=== PATIENT | female | born 2000 | race Caucasian/White ===

== ENCOUNTER 2024-10-25 20:23 | Day surgery (SDC) | payer BC, SELFPAY ==
[2024-10-25] VITALS (8 sets, daily range): BP systolic 98–116; BP diastolic 57–80; BMI 36.3
[2024-10-25 13:39] LABS: % Basophils 0.4 % (0-2); % Eosinophils 1.4 % (0-6); % Immature Granulocytes 0.3 % (0-0.5); % Lymphocytes 20.6 % (20.5-51.1); % Monocytes 4.4 % (1.7-9.3); % Neutrophils 72.9 % (42.2-75.2); Absolute Eosinophils 0.2 10^3/uL (0-0.7); Absolute Lymphocytes 2.2 10^3/uL (1.2-3.4); Absolute Monocytes 0.5 10^3/uL (0.1-0.6); Absolute Neutrophils 7.9 10^3/uL (1.4-6.5); Hematocrit 38.6 % (37.0-47.0); Hemoglobin 13.4 g/dL (12.0-16.0); Mean Corp Hgb Conc. 34.7 g/dL (33.0-37.0); Mean Corpuscular Hgb 30.4 pg (27.0-31.0); Mean Corpuscular Volume 87.5 fL (81.0-99.0); Mean Platelet Volume 9.5 fL (7.4-10.4); Nucleated Red Blood Cells % 0 %; Platelet Count 391 10^3/uL (130-400); Red Blood Cell Count 4.41 10^6/uL (4.20-5.40); Red Cell Dist. Width 12.3 % (11.5-14.5); White Blood Cell Count 10.8 10^3/uL (4.8-10.8)
[2024-10-25 13:49] LABS: HCG, Serum Qualitative Screen Negative
[2024-10-25 13:56] LABS: ALT (SGPT) 158 U/L (0-35); AST (SGOT) 206 U/L (14-36); Albumin 4.3 g/dl (3.5-5.0); Alkaline Phosphatase 79 U/L (38-126); Blood Urea Nitrogen 13 mg/dl (7-17); Calcium 9.8 mg/dl (8.4-10.2); Carbon Dioxide 24 mmol/L (22-30); Chloride 108 mmol/L (98-107); Glucose 119 mg/dl (70-99); Lipase 113 U/L (23-300); Potassium 3.7 mmol/L (3.5-5.1); Sodium 141 mmol/L (135-145); Total Bilirubin 1.8 mg/dl (0.2-1.3); Total Protein 7.4 g/dl (6.3-8.2); eGFR > 60.00
--- NOTE | 2024-10-25 16:30 | ED.GENMED ---
History of Present Illness
General
Chief Complaint: Abdominal Symptoms
Source: patient
Time Seen by Provider: 10/25/24 15:18
History of Present Illness
History of Present Illness:
23-year-old female with past medical history of asthma and PCOS presenting to the emergency department for evaluation of right upper quadrant abdominal pain that has been waxing and waning for the last few weeks, went to primary care provider 3
weeks ago but nothing was reportedly done at that time. This morning patient ate a peanut butter sandwich and approximately 30 minutes after eating developed severe right upper quadrant pain that radiated towards her back accompanied with nausea
and vomiting. Pain on arrival now is much improved as well as the nausea. Patient denies any fevers, chills, rigors, bowel changes or urinary symptoms. Last menstrual period was 3 weeks ago, no concern for . Denies any alcohol or
tobacco use. No other concerns at this time.
Past History
Past History
ED Past Medical History: Asthma and Other (PCOS)
ED Past Surgical History: None
Social History
Tobacco: Non-smoker
Alcohol: Occasional
Drug: None
Personal: Single
Living: with family
Review of Systems
Review of Systems
All Other Systems: ROS reviewed and negative except as documented in HPI and ROS
Phy Exam
Physical Exam
Physical Exam:
GENERAL: Alert , in no apparent distress
EYE: clear conjunctiva b/l
HEAD: NCAT
ENT: o/p clr, mmm.
CARDIAC: Regular rate and rhythm .
LUNGS: Clear breath sounds bilaterally, no acute respiratory distress, no wheezes/rales/rhonchi
ABDOMEN: Soft, mild right upper quadrant tenderness, no r/g, no cvat, negative Evans sign
NEUROLOGICAL: Alert and oriented
SKIN: Warm and dry, skin intact.
MUSCULOSKELETAL: well perfused.
PSYCH: Normal and appropriate interaction.
Scores
Heart Failure Risk
Heart Failure Risk Score: Not Applicable
Heart Score for Chest Pain Patients
STEMI patient?: Not applicable
Withdrawal Assessment of Alcohol
Withdrawal Assessment Completed?: Not applicable
Course
Orders/Labs/Results
Orders:
Orders
10/25/24 13:28
Test Result ONCE
10/25/24 13:33
Complete Blood Count/With Diff Urgent
Comprehensive Metabolic Panel Urgent
HCG, Serum Qualitative Screen Urgent
Comment: Notify provider if positive test present
Lipase Urgent
10/25/24 Dinner
Low Fat
At Your Request: Limited Participation
10/25/24 15:40
US Abdomen Complete/Upper Urgent
Comment:
Reason For Exam: RUQ pain, vomiting, elevated LFT
10/25/24 19:44
Admit/Transfer Patient As Directed
Co-Sign Provider:
Level of Care: Observation services
Assign to:: Medical/Surgical
Physician / Group: Dr. Ruiz
Diagnosis: Biliary colic, transaminitis
10/25/24 19:45
PRN Pain Medication Management As Directed
May give lesser potent ordered pain med per pt: Yes
preference::
Protocol:: Medication orders for pain may be administered in a
manner that supports deferring to patient preference
when the pt is:
- Requesting an ordered lesser potent pain medication.
Least to most potent pain medications are defined
as: acetaminophen < NSAID < tramadol < opioids
(morphine, oxycodone, hydromorphone).
- Requesting a lesser dose of the same medication IF
ORDERED.
- Requesting a less intrusive route of administration
if both routes are prescribed by the provider (PO <
IV).
10/25/24 19:49
Code Status As Directed
Resuscitation Status: Full Code
10/25/24 20:27
Acetaminophen [Tylenol] 650 mg PO Q4HPRN PRN
10/25/24 20:51
Benzocaine/Menthol [Anesthetic Lozenge] 1 lozenge PO Q4HPRN PRN
Morphine Sulfate 2 mg IV Q2HPRN PRN
Morphine Sulfate 4 mg IV Q2HPRN PRN
Ondansetron Injectable [Zofran] 4 mg IV Q6HPRN PRN
10/25/24 20:51
Activity As Directed
Activity Level: As Tolerated
Anti-embolism (MIHIR) Hose As Directed
Type: Thigh high
Bladder Scan As Directed
Follow Bladder Retention/Intermittent Cath Algorithm?: Yes
PRN if no void in __ hours: 6
Frequency: Per Retention Algorithm
If Bladder Scan Result >: 400
then:: Straight cath
Intake/ Output As Directed
Frequency: Per unit guidelines
Pneumatic Compression Sleeves As Directed
Type: Thigh high
Straight Cath As Directed
Frequency: Per Retention Algorithm
Additional Instructions: as per intermittent urinary catheter algorithm
Vital Signs As Directed
Frequency: Per unit guidelines
Weight As Directed
Frequency: Once
O2 Therapy [RESP] Routine
Titrate/Wean O2 to maintain O2 sat greater than (%): 92
Rx Incentive Spirometry [RESP] Routine
Frequency: q1h while awake
# of times per hour: 10
DX Deep Vein Thrombosis Video Routine
10/26/24 00:00
0.9% Sodium Chloride 1000 ml [Nss] 1,000 ml IV 80 mls/hr
10/26/24 05:09
Complete Blood Count/No Diff IN AM
10/26/24 06:00
Electrocardiogram (*1) IN AM
Reason for Study: PreOp
NPO
Allow oral meds: Yes
Allow clear liquids: Sips of Clears
NPO with Ice Chips: Yes
10/26/24 18:00
Enoxaparin Sodium [Lovenox] 40 mg SC QPM
Abnormal Lab Results
10/25/24
13:33
Absolute Neuts (auto) 7.9 H 10^3/uL
(1.4-6.5)
Chloride 108 H mmol/L
(98-107)
Glucose 119 H mg/dl
(70-99)
Total Bilirubin 1.8 H mg/dl
(0.2-1.3)
AST 206 H U/L
(14-36)
ALT 158 H U/L
(0-35)
10/25/24 13:33
10/25/24 13:33
Vital Signs
Initial and Last Documented VS:
Initial Vital Signs
Temp Pulse Resp BP Pulse Ox
97.7 F 84 18 115/80 100
10/25/24 13:25 10/25/24 13:25 10/25/24 13:25 10/25/24 13:25 10/25/24 13:25
Last Documented Vital Signs
Temp Pulse Resp BP Pulse Ox
98.9 F 60 18 111/57 100
10/26/24 07:40 10/26/24 07:40 10/26/24 07:40 10/26/24 07:40 10/26/24 07:40
MDM/Problems Addressed
Differential Diagnosis Includes:
Biliary colic, renal/ureteral colic, GERD/gastritis, peptic ulcer disease, pancreatitis
MDM/Problems Addressed:
23-year-old female presenting to the emergency department for waxing and waning right upper quadrant abdominal pain that seems to worsen with eating, accompanied with nausea and vomiting, today symptoms much more severe prompting her to come the ER.
Labs initiated in triage which show an elevated total bilirubin and AST/ALT. I am concerned for biliary colic/cholecystitis as the cause for patient's symptoms. Patient declining anything for pain at this time. Ultrasound of the abdomen ordered.
Disposition pending.
*Radiology
Radiology exam reviewed: radiology read reviewed
*Pulse Oximetry
Patient hypoxic: no
*Critical Care Note
Total Time (30-74mins, 75-104mins- exclusive of procedures): Not Applicable
Patient Management
Discussion with other providers: Hospitalist and Setter Machine
Escalation/DeEscalation of care consider admission/obs:
Patient's ultrasound shows multiple gallstones with questionable gallbladder wall thickening. She remains with symptomatic relief however she is afraid to p.o. trial with solids for fear of recurring pain. I notified general surgical team who
states they would be able to consult on the patient in the morning with possible plans for the OR tomorrow. Keep patient n.p.o. after midnight. Given she is afebrile and no leukocytosis will hold off on antibiotics. Will admit to the house nurse
practitioner under surgical service.
ED Attending Note
-
Portions of this chart may have been created with voice recognition software.� Occasional wrong word or��sound alike� substitutions may have occurred due to the inherent limitations of voice recognition software.
Discharge Plan
Departure
Patient Disposition: Admit
Date of Disposition: 10/25/24
Time of Disposition: 19:02
Presentation/result/management discussed w/ accepting MD/DO: Sara
Discharge Problem:
Biliary colic, Transaminitis
Interventions
Interventions:
*Risk Screen - Suicide Last Done: 10/25/24 13:25
*General Assessment Last Done: 10/25/24 13:25
*Neglect/Abuse Screening Last Done: 10/25/24 16:55
*ED- Fall Risk Assessment Last Done: 10/25/24 16:55
*ED COVID-19 Vaccine History Last Done: 10/25/24 13:25
*Nursing Disposition Last Done: 10/25/24 21:00
DH-Ejiuit-Utjamfeqpz Assessment Last Done: 10/25/24 19:13
Discharge Date and Time
Discharge Date/Time: 10/25/24 20:35
--- NOTE | 2024-10-25 19:57 | HPS.HSE ---
Addendum entered and electronically signed by Juan Miguel Nagy MD 10/26/24 10:31:
I saw and examined the patient independently.
The Journeyman Pipe Welder's note was reviewed and I agree with the note, assessment and plan except where noted below.
Comment: This is a 23-year-old female who presents with several month history of intermittent postprandial right upper quadrant pain consistent with biliary colic here with exacerbation of set pain. Exam, imaging, blood work all consistent with
biliary colic versus early acute cholecystitis.
Will plan for a laparoscopic cholecystectomy in the OR today.
N.p.o., IV fluids, IV antibiotics ordered.
Risks/Benefits/Alternatives, expected postoperative course and possible complications (bleeding, infection, injury to surrounding structures, acute/chronic pain) discussed at length. Patient wishes to proceed with surgery. All questions answered.
Consent obtained.
I spent 65 minutes in total for the care of this patient today including direct patient care and counseling, reviewing labs, imaging, coordination of care, as well as documentation.
Original Note:
Family Physician
-
Family Physician: LISSET Galan
Chief Complaint
-
Abdominal pain
History of Present Illness
Patient is a 23 year old female, with a past medical history of asthma, PCOS, and anxiety/depression, EDNOS, who presents to the emergency department with complaints of right upper quadrant abdominal pain with nausea and vomiting that has been
intermittent over the last few weeks. She went to her PCP 3 weeks ago but no acute concerns found at that time. Last night she starting nausea/vomiting. This morning she ate a peanut butter sandwich and approximately 30 minutes after eating
developed severe right upper quadrant pain that radiated towards her back accompanied with nausea and vomiting. On arrival to the emergency department, pain is improved, rates at 2 out of 10 and described as slight cramping. Denies nausea and
vomiting at this time. Patient denies fevers, chills, rigors, bowel changes or urinary symptoms. Last menstrual period was 3 weeks ago, no concern for . Denies alcohol or tobacco use.
In the emergency department, CBC unremarkable, total bilirubin 1.8, AST 206, ALT 158. No medications given in the emergency department.
US abdomen showed somewhat contracted gallbladder containing numerous stones. Negative sonographic Evans's sign. Partially contracted appearance of the gallbladder limits evaluation of the gallbladder wall, likely not thickened. No findings to
suggest pericholecystic fluid or biliary tract dilatation.
The emergency provider discussed case with General surgery, Dr. Ruiz, who accepted the patient to his surgical service. Plan to admit to surgical service, keep patient n.p.o. after midnight, possible OR tomorrow. Given she is afebrile and no
leukocytosis will hold off on antibiotics.
Medical History
Past Medical History
Past Medical History: Reports Asthma, Psychiatric (EDNOS, anxiety, depression) and Other (PCOS)
Past Surgical History: Reports Other ([place] teeth removal, 2012)
Social History
Tobacco: Non-smoker
Alcohol: Occasional
Drug: None
Personal: Single
Living: With Family
Family History
Family History: Not pertinent
Allergies / Home Medications
Allergies reflects when Allergies were last updated in [facility].
Home Medications with original date entered in [facility]
Allergy/Medication List:
Patient Allergies
Allergy/AdvReac Type Severity Reaction Status Date / Time
No Known Allergies Allergy Verified 10/25/24 13:27
Home Medications
�Medication �Instructions �Recorded
duloxetine 30 mg capsule,delayed 60 mg PO DAILY 10/25/24
release sprinkle
etonogestrel 0.12 mg-ethinyl 1 vag ring vaginal Q4W 10/25/24
estradiol 0.015 mg/24 hr vaginal
ring (NuvaRing)
metformin 500 mg tablet,extended 500 mg PO DAILY 10/25/24
release 24 hr
montelukast 10 mg tablet 10 mg PO DAILY 10/25/24
Review of Systems
-
History Source: Patient
A 12 point ROS was completed and negative except as noted: Yes
Constitutional: Reports No Symptoms
EENT: Reports No Symptoms
Respiratory: Reports No Symptoms
Cardiac: Reports No Symptoms
Abdomen/GI: Reports Abdominal Pain, Nausea and Vomiting
: Reports No Symptoms
Musculoskeletal: Reports No Symptoms
Skin: Reports No Symptoms
Neurological: Reports No Symptoms
Endocrine: Reports No Symptoms
Hematologic/Lymphatic: Reports No Symptoms
Psych: Reports Depression, Anxiety and Eating Disorder
Physical Exam
Vital Signs
Vital Signs
Temp Pulse Resp BP Pulse Ox
98.9 F 72 20 116/57 100
10/25/24 19:13 10/25/24 19:13 10/25/24 19:13 10/25/24 19:13 10/25/24 19:13
Physical Exam
General: No Apparent Distress, Comfortable, Conversant and Pain (tender right upper quadrant)
HEENT: NormoCephalic
Respiratory: Clear
Cardiac: S1/S2 and Regular Rhythm
GI: Soft and Tender (right upper quadrant)
Musculoskeletal: No Edema
Skin: Warm and Dry
Neuro: AO x 3
Psych: Calm and Intact Judgment/Insight
Laboratory Results
-
10/25/24 13:33
10/25/24 13:33
Laboratory Results
Total Bilirubin 1.8 mg/dl (0.2-1.3) H 10/25/24 13:33
AST 206 U/L (14-36) H 10/25/24 13:33
ALT 158 U/L (0-35) H 10/25/24 13:33
Alkaline Phosphatase 79 U/L (38-126) 10/25/24 13:33
Lipase 113 U/L (23-300) 10/25/24 13:33
Data Reviewed
-
Ultrasound: Report Reviewed by me
Lab Data: Labs Reviewed by me
Impression/Plan
-
IMPRESSION:
Patient is a 23 year old female, with a past medical history of asthma, PCOS, and anxiety/depression, EDNOS, who presents to the emergency department with complaints of right upper quadrant abdominal pain with nausea and vomiting that has been
intermittent over the last few weeks.
PLAN:
Biliary Colic/Transaminitis
- Admitted to General Surgery, Dr. Ruiz accepting for further evaluation and treatment.
- Ultrasound shows multiple gallstones with questionable gallbladder wall thickening.
- IV abx on hold due to no leukocytosis and patient afebrile, NPO, IVF support.
- Pain control, antiemetics, etc.
- Repeat labs in am.
- Follow for any new / worsening symptoms.
Anxiety/Depression
- Continue home medications as per surgery: Duloxetine
PCOS
- Continue home medications as per surgery: Metformin
Obesity due to excess calories
- Affects all aspects of care.
- Encourage healthy diet and increased exercise with goal of weight loss.
DVT Prophylaxis: SCDs
Code Status: Full
[2024-10-25] MEDS: TYLENOL 650 MG PO (20:33)
--- NOTE | 2024-10-25 21:19 | PTCARENOTE ---
Pt arrived to [facility] at 2100 from the ED in a stretcher. Pt walked from stretcher to bed w/o incident. Pt parents at bedside with pt and mom will be staying overnight. Admission questions answered. Bed locked and in lowest position. Call conteh within
reach. Care ongoing.
[2024-10-26] VITALS (14 sets, daily range): BP systolic 101–132; BP diastolic 57–75; BMI 34.7
[2024-10-26] MEDS: NSS 1000 IV ×2 (00:09→17:17)
[2024-10-26] MEDS: MORPHINE SULFATE 2 MG IV ×3 (00:34→23:24)
[2024-10-26] MEDS: ZOFRAN 4 MG IV ×2 (05:23→14:33)
[2024-10-26 06:22] LABS: Hematocrit 35.7 % (37.0-47.0); Hemoglobin 12.1 g/dL (12.0-16.0); Mean Corp Hgb Conc. 33.9 g/dL (33.0-37.0); Mean Corpuscular Hgb 30.7 pg (27.0-31.0); Mean Corpuscular Volume 90.6 fL (81.0-99.0); Mean Platelet Volume 10.3 fL (7.4-10.4); Platelet Count 320 10^3/uL (130-400); Red Blood Cell Count 3.94 10^6/uL (4.20-5.40); Red Cell Dist. Width 12.3 % (11.5-14.5); White Blood Cell Count 6.6 10^3/uL (4.8-10.8)
[2024-10-26 06:52] LABS: ALT (SGPT) 260 U/L (0-35); AST (SGOT) 237 U/L (14-36); Alkaline Phosphatase 109 U/L (38-126); Blood Urea Nitrogen 9 mg/dl (7-17); Calcium 9.3 mg/dl (8.4-10.2); Carbon Dioxide 23 mmol/L (22-30); Chloride 109 mmol/L (98-107); Direct Bilirubin 0.8 mg/dl (0.0-0.4); Estimated Creatinine Clearance 107 ml/min; Glucose 86 mg/dl (70-99); Potassium 4.1 mmol/L (3.5-5.1); Sodium 142 mmol/L (135-145); Total Bilirubin 1.8 mg/dl (0.2-1.3); Total Protein 6.6 g/dl (6.3-8.2); eGFR > 60.00
--- NOTE | 2024-10-26 09:40 | CM ---
CM reviewed medical records. Patient lives independently with parents. Patient does not have a history of VN, SNF or DME. Patient is active with her PCP. Patient has medication coverage.
PLAN: home no needs.
[2024-10-26] MEDS: ZOSYN 50 IV (09:58)
[2024-10-26] MEDS: CYMBALTA DELAYED RELEASE 60 MG PO (09:58)
--- NOTE | 2024-10-26 10:31 | W.SUR.PREOP ---
Pre-Operative Surgical Note
-
I have examined this patient prior to the performance of the scheduled procedure.
The patient's condition is unchanged from the time of the current History and
Physical and the patient is able to undergo the scheduled procedure.
--- NOTE | 2024-10-26 14:13 | W.IMMPOSTOP ---
Surgical Immed Post Op Note
-
Primary Surgeon: Juan Miguel Nagy MD
Assisting Surgeon: None
Pre-op Diagnosis: Acute cholecystitis
Post-op Diagnosis: Chronic cholecystitis, choledocholithiasis
Procedure Performed:
1. Laparoscopic cholecystectomy with cholangiogram
2. Laparoscopic transcystic common bile duct exploration
Anesthesia Type: General
Specimen / Cultures: Gallbladder and contents, common duct stone
Estimated Blood Loss: 3 cc
Complications: None
Operative Findings: Fairly normal-appearing gallbladder however some inflammation noted in the cystic triangle. Critical view of safety obtained prior to a cholangiogram which demonstrated a nonocclusive but large filling defect in the distal CBD.
1 mg of glucagon was given with persistence of the obstruction. A cholangiocatheter was advanced into the duodenum successfully but we were not able to push the stone antegrade. However, we were able to snare the stone and pull it back proximally
in a retrograde fashion and then milked it out of our ductotomy site. Completion cholangiogram was performed to confirm no residual filling defect. The duct was then ligated with a clip followed by a 0 PDS Endoloop. There was minimal spillage of
bile.
POST OP PLAN:
Imaging: None
Labs: Routine AM, lipase
Diet: Advance to Regular as tolerated
Analgesia: Tylenol 650mg q6 Kwadwo, Nydia 5mg q6 PRN, Dilaudid 0.5mg q2h PRN
Neuro/vascular checks: q4h
AC/AP: Hold Therapeutic AC, Ok for DVT PPx
Activity: Ad Tosha
Wound/Incisions/Drains: Routine
Abx: None
Dispo: RNF, anticipate discharge home tomorrow.
--- NOTE | 2024-10-26 14:21 | OR.RPT ---
Operative Report
Operative Report
Patient Name: Vanessa Hickman
: 2000
Date of Operation: 10/26/2024
Preoperative Diagnosis: Acute cholecystitis
Postoperative Diagnosis: S chronic cholecystitis, choledocholithiasis
Procedure(s):
1. Laparoscopic Cholecystectomy with Cholangiogram
2. Laparoscopic transcystic common bile duct exploration
Surgeon(s):
Dr. Nagy
Immunohematologist(s):
MAGI Bui
Anesthesia: General
Estimated Blood Loss: 3 cc
Urine Output: None
Drains/Lines/Implants: None
Specimens:
1. Gallbladder and contents
HPI/Surgical Indications:
This is a 23-year-old female who presents with a day of postprandial right upper quadrant abdominal pain, in the setting of similar attacks over the past few months. Exam, labs and imaging are consistent with early acute cholecystitis.
Risks/Benefits/Alternatives were discussed at length, and the patient agreed to proceed with surgery.
Operative Findings: Fairly normal-appearing gallbladder however some inflammation noted in the cystic triangle. Critical view of safety obtained prior to a cholangiogram which demonstrated a nonocclusive but large filling defect in the distal CBD.
1 mg of glucagon was given with persistence of the obstruction. A cholangiocatheter was advanced into the duodenum successfully but we were not able to push the stone antegrade. However, we were able to snare the stone and pull it back proximally
in a retrograde fashion and then milked it out of our ductotomy site. Completion cholangiogram was performed to confirm no residual filling defect. The duct was then ligated with a clip followed by a 0 PDS Endoloop. There was minimal spillage of
bile.
Procedure Description:
The patient was brought to the Operating Room and placed in the supine position with one arm tucked. Following uneventful induction of general endotracheal anesthesia, an orogastric tube was placed. The abdomen was prepped and draped in the usual
sterile fashion. A timeout was performed confirming the procedure, consent, and that IV antibiotics were infused and sequential compression devices were confirmed to be on. The abdomen was entered using a left subcostal Veress technique which
required a single pass followed by a 5 mm right upper quadrant Optiview trocar. Pneumoperitoneum to 15 mmHg pressure was obtained without difficulty and we confirmed that no injury had occurred during our entry. The patient was positioned in
reverse Trendelenberg and rotated with the right side up slightly. Two 5 mm trocars were then placed along the right subcostal margin, followed by a 12 mm port in the epigastrium. The gallbladder appeared fairly normal although there was some
inflammation noted in the cystic triangle. A locking grasping forceps was placed on the fundus of the gallbladder where it was then retracted cephalad and to the right. Using appropriate grasping instruments, the peritoneum overlying the triangle
of Calot was incised and extended superiorly on both the anterior and posterior gallbladder belle. The infundibulum was dissected off the cystic plate. The cystic triangle was dissected until a critical view of safety was achieved. The cystic
artery was medialized, dissected and controlled with 2 proximal clips and 1 distal. The cystic duct/gallbladder junction in turn was identified, dissected circumferentially and a clip was placed. A ductotomy was made and a cholangiocatheter on an
To clamp was inserted into the cystic duct. A C-arm was draped and brought into the field. An intra-operative cholangiogram was performed and was noted to have:
A nonocclusive filling defect in the distal CBD
Mild biliary dilation
Normal biliary anatomy
We then undertook a laparoscopic transcystic common bile duct exploration by 1 administering 1 mg of glucagon and allowing for 2 minutes to pass. Subsequent cholangiogram redemonstrated the distal stone. We then advanced the catheter under
fluoroscopic guidance into the duodenum and then tried to push the stone through the ampulla however this was unsuccessful. We were then able to wedge the stone between the catheter and duct and pull it retrograde to the takeoff of the cystic duct
where we were then able to milk it back through our ductotomy. It appeared to be a yellow cholesterol gallstone. A completion cholangiogram was then performed which confirmed no residual filling defects and normal biliary anatomy.
The catheter was then removed and the cystic duct was controlled with a clip followed by a 0 PDS Endoloop. After ensuring both the artery and duct were divided, the gallbladder was freed from the liver using electrocautery. There was some spillage
of bile from our cholangiogram, but no spillage of stones. The gallbladder bed was inspected and excellent hemostasis was obtained. The gallbladder was extracted through the 12 mm trocar site using an endocatch bag. The abdomen was again irrigated
and excellent hemostasis was assured. All remaining trocars were then removed and the pneumoperitoneum was evacuated. The 12 mm trocar site was closed using 0 PDS suture. All trocar sites were closed at the skin level using 4-0 Monocryl followed
by Dermabond. Overall, the patient tolerated the procedure well and was taken to the Recovery Room postoperatively in stable condition.
I was the attending physician and performed the procedure with assistance from the MANAGER INSURANCE above. I was present for all portions of the case, excluding skin closure.
Juan Miguel Nagy MD
[2024-10-26] MEDS: INDOCIN 100 MG RECTAL (15:00)
--- NOTE | 2024-10-26 15:41 | PTCARENOTE ---
Patient returned to her room from [facility] post laparoscopic cholecystectomy with cholangiogram.The patient is drowsy but arousable.She reports her pain at a 6 out of 10.Vital signs are stable.All four lap sites look good with no drainage.The patient is
in her bed with the call conteh in reach.Her family is at the bedside.
[2024-10-26] MEDS: SINGULAIR 10 MG PO (17:18)
[2024-10-26] MEDS: LOVENOX 40 MG SC (17:18)
[2024-10-26] MEDS: TORADOL 15 MG IV (20:35)
[2024-10-26] MEDS: ANESTHETIC LOZENGE 1 LOZENGE PO (23:24)
[2024-10-26] MEDS: MYLICON 80 MG PO (23:50)
[2024-10-27 04:09] VITALS: BP 105/59
[2024-10-27] MEDS: NSS 1000 IV (05:36)
[2024-10-27] MEDS: TORADOL 15 MG IV (05:47)
[2024-10-27 06:41] LABS: % Basophils 0.1 % (0-2); % Eosinophils 0.1 % (0-6); % Immature Granulocytes 0.5 % (0-0.5); % Lymphocytes 17.8 % (20.5-51.1); % Monocytes 6.3 % (1.7-9.3); % Neutrophils 75.2 % (42.2-75.2); Absolute Lymphocytes 1.5 10^3/uL (1.2-3.4); Absolute Monocytes 0.5 10^3/uL (0.1-0.6); Absolute Neutrophils 6.3 10^3/uL (1.4-6.5); Hematocrit 32.7 % (37.0-47.0); Hemoglobin 11.3 g/dL (12.0-16.0); Mean Corp Hgb Conc. 34.6 g/dL (33.0-37.0); Mean Corpuscular Hgb 30.6 pg (27.0-31.0); Mean Corpuscular Volume 88.6 fL (81.0-99.0); Mean Platelet Volume 10.4 fL (7.4-10.4); Nucleated Red Blood Cells % 0 %; Platelet Count 319 10^3/uL (130-400); Red Blood Cell Count 3.69 10^6/uL (4.20-5.40); White Blood Cell Count 8.4 10^3/uL (4.8-10.8)
[2024-10-27 07:00] VITALS: BP 107/58
[2024-10-27 07:02] LABS: ALT (SGPT) 172 U/L (0-35); AST (SGOT) 73 U/L (14-36); Albumin 3.4 g/dl (3.5-5.0); Alkaline Phosphatase 90 U/L (38-126); Blood Urea Nitrogen 9 mg/dl (7-17); Calcium 9.2 mg/dl (8.4-10.2); Carbon Dioxide 22 mmol/L (22-30); Chloride 110 mmol/L (98-107); Estimated Creatinine Clearance > 125 ml/min; Glucose 98 mg/dl (70-99); Lipase 59 U/L (23-300); Potassium 4.5 mmol/L (3.5-5.1); Sodium 139 mmol/L (135-145); Total Bilirubin 0.7 mg/dl (0.2-1.3); eGFR > 60.00
--- NOTE | 2024-10-27 08:06 | W.PN.GS2 ---
Today's Communication / Plan
-
Dispo planning
Assessment / Plan
-
This is a 23-year-old female postoperative day 1 from a laparoscopic cholecystectomy and transcystic common bile duct exploration for cholecystitis and choledocholithiasis. Doing well, expected postoperative course.
DC home today.
Time Spent
Total Time Spent with Patient (in minutes): 20
Subjective Data
-
Date of Service: October 27, 2024
Interval Events:
No acute events overnight. Slept well. Pain Controlled. Denies Nausea/Vomiting, +bowel function. Tolerating diet.
Objective Data
-
Intake and Output
10/26/24 10/27/24 10/28/24
06:59 06:59 06:59
Intake Total 720 / 720 1640 / 1640
Output Total 960 / 960
Balance 720 / 720 680 / 680
Intake:
Oral fluids 240 / 240 1240 / 1240
IV fluids (Total) 480 / 480 400 / 400
Normosol 400 / 400
Output:
Urine, Voided 960 / 960
Other:
Number of approximated MODERATE 2 1
amounts of urine
Vital Signs
Temp Pulse Resp BP Pulse Ox
98.1 F 61 16 105/59 98
10/27/24 04:09 10/27/24 04:09 10/27/24 04:09 10/27/24 04:09 10/27/24 04:09
Lab Results
10/27/24 05:25
10/27/24 05:25
Calcium 9.2 mg/dl (8.4-10.2) 10/27/24 05:25
Total Bilirubin 0.7 mg/dl (0.2-1.3) D 10/27/24 05:25
Direct Bilirubin 0.8 mg/dl (0.0-0.4) H 10/26/24 05:09
AST 73 U/L (14-36) H 10/27/24 05:25
ALT 172 U/L (0-35) H 10/27/24 05:25
Alkaline Phosphatase 90 U/L (38-126) 10/27/24 05:25
Total Protein 6.0 g/dl (6.3-8.2) L 10/27/24 05:25
Albumin 3.4 g/dl (3.5-5.0) L 10/27/24 05:25
Physical Exam
-
GENERAL/NEURO: Awake, Alert, no distress
CHEST: Unlabored breathing on RA
ABDOMEN: Soft, Non-Tender, Non-Distended, incisions clean dry and intact
Patient has a rcihardson catheter: No
Patient has a central line: No
[2024-10-27] MEDS: CYMBALTA DELAYED RELEASE 60 MG PO (08:29)
--- NOTE | 2024-10-27 09:12 | CM ---
CM following re: discharge planning.
Reviewed pt's chart, met with pt and pt's mother at bedside.
Pt is POD # 1 from a laparoscopic cholecystectomy and transcystic common bile duct exploration for cholecystitis and choledocholithiasis. Pt reports she is doing well.
Pt has OBS status, OBS status explained to the pt, OBS letter signed, placed on chart, pt has a copy.
Discharge order noted. Both pt and her mother are aware and mother stated she will transport her daughter home.
Pt lives with mother and father 2SH, independent [employer] and pt is a student of [employer].
D/C plan: home no needs. Mother to transport.
[2024-10-27 10:43] VITALS: BP 105/70
[2024-10-27] MEDS: MORPHINE SULFATE 2 MG IV (10:55)
== END 2024-10-27 12:02 | disposition home or self-care (01) ==
LOC: PACU 20:23
PROVIDERS: Nurse Practitioner Family; Surgery; ATTENDING PHYSICIAN Surgery; EMERGENCY PHYSICIAN Emergency Medicine; FAMILY PHYSICIAN Physician Assistant
DX: K80.10 Calculus of gallbladder with chronic cholecystitis without obstruction (principal)
CPT/HCPCS: 47564; 88304; 74300; 76000; 76700; 80053; 82248; 83690; 84703; 85025; 85027; 93005; 99285; A4300; G0378; J1610

== ENCOUNTER → 2025-04-30 08:05 | Outpatient (REF) | payer BC, SELFPAY | LOC: WDC 08:05 | PROVIDERS: ATTENDING PHYSICIAN Physician Assistant | DX: N63.20 Unspecified lump in the left breast, unspecified quadrant (principal); N63.21 Unspecified lump in the left breast, upper outer quadrant | CPT/HCPCS: 76642 ==

== ENCOUNTER 2025-04-30 19:51 | Emergency (ER) | payer BC, SELFPAY ==
[2025-04-30 19:54] VITALS: BP 166/91
[2025-04-30 20:11] LABS: Hematocrit 40.1 % (37.0-47.0); Hemoglobin 13.4 g/dL (12.0-16.0); Mean Corp Hgb Conc. 33.4 g/dL (33.0-37.0); Mean Corpuscular Volume 89.5 fL (81.0-99.0); Nucleated Red Blood Cells % 0 %; Platelet Count 364 10^3/uL (130-400); Red Cell Dist. Width 12.2 % (11.5-14.5)
[2025-04-30 20:23] LABS: AST (SGOT) 25 U/L (14-36); Albumin 4.8 g/dl (3.5-5.0); Alkaline Phosphatase 53 U/L (38-126); Blood Urea Nitrogen 18 mg/dl (7-17); Calcium 9.7 mg/dl (8.4-10.2); Carbon Dioxide 23 mmol/L (22-30); Chloride 105 mmol/L (98-107); Glucose 123 mg/dl (70-99); Sodium 137 mmol/L (135-145); Total Protein 8.1 g/dl (6.3-8.2); eGFR > 60.00
[2025-04-30 20:28] LABS: Lipase 53 U/L (23-300)
[2025-04-30 20:32] LABS: HCG, Serum Qualitative Screen Negative
[2025-04-30 20:35] LABS: ALT (SGPT) 21 U/L (0-35); Potassium 4.2 mmol/L (3.5-5.1)
[2025-04-30 21:37] VITALS: BMI 37.0
[2025-04-30 21:42] VITALS: BP 110/67
[2025-04-30] MEDS: ZOFRAN 4 MG IV (22:13)
[2025-04-30] MEDS: NSS 1000 IV (22:13)
--- NOTE | 2025-04-30 22:32 | ED.GENMED ---
History of Present Illness
General
Chief Complaint: Abdominal Symptoms
Source: patient
Exam Limitations: none
Time Seen by Provider: 04/30/25 21:29
Nursing documentation reviewed up to this point in time: agreed with
History of Present Illness
History of Present Illness:
24-year-old female with history of anxiety/depression, PCOS, cholecystectomy 10/26/2024 presents with an acute onset of nausea and vomiting at 330 this afternoon. She denies fever or chills. Denies chest pain or shortness of breath. Denies
abdominal pain. She has had some loose to watery nonbloody stools past 2 days.
Past History
Past History
ED Past Medical History: Asthma, Psychiatric (Anxiety/depression) and Other (Takes metformin for PCOS)
ED Past Surgical History: None
Social History
Tobacco: Non-smoker
Alcohol: Occasional
Drug: Marijuana (She states mostly on weekends, she did smoke at today)
Personal: Single
Living: with family
Review of Systems
Review of Systems
Allergies reviewed?: Yes
All Other Systems: ROS reviewed and negative except as documented in HPI and ROS
Phy Exam
Physical Exam
Physical Exam:
GENERAL: No acute distress. A&Ox3.
CONSTITUTIONAL: Afebrile.
EYES: clear, conjunctivae normal
ENMT: moist mucus membranes, Pharynx nl
RESPIRATORY: Regular respirations, nonlabored, lungs clear.
CARDIOVASCULAR: Regular rate and rhythm, no murmurs, no rubs.
GI: Soft, nontender, normal BS
MUSCULOSKELETAL: Moves with ease. Well perfused.
SKIN: Warm, dry, pink
PSYCH: Normal mood and affect. Well kept, interactive and appropriate
NEUROLOGIC: Awake, alert and oriented. No focal neurological deficits
Course
Orders/Labs/Results
Orders:
Orders
04/30/25 19:58
Test Result ONCE
04/30/25 20:00
Add On- LAB Urgent
Tests Added?: lipase
04/30/25 20:02
Complete Blood Count/With Diff Urgent
Comprehensive Metabolic Panel Urgent
HCG, Serum Qualitative Screen Urgent
Lipase Urgent
Comment: ADD ON
04/30/25 21:58
Ondansetron Injectable [Zofran] 4 mg .ROUTE .STK-MED ONE
04/30/25 22:07
0.9% Sodium Chloride 1000 ml [Nss] 1,000 ml IV BOLUS
Ondansetron Injectable [Zofran] 4 mg IV NOW STA
04/30/25 23:19
Diphenhydramine [Benadryl] 50 mg IM NOW STA
Prochlorperazine [Compazine] 10 mg IV NOW STA
05/01/25 00:00
CT Abd/Pel (IV only)-DH only Urgent
Reason For Exam: R side abd pain
Abnormal Lab Results
04/30/25
20:02
WBC 14.5 H 10^3/uL
(4.8-10.8)
Absolute Neuts (auto) 13.0 H 10^3/uL
(1.4-6.5)
Absolute Lymphs (auto) 0.7 L 10^3/uL
(1.2-3.4)
Neutrophils % 90.1 H %
(42.2-75.2)
Lymphocytes % 5.1 L %
(20.5-51.1)
BUN 18 H mg/dl
(7-17)
Glucose 123 H mg/dl
(70-99)
04/30/25 20:02
04/30/25 20:02
Vital Signs
Initial and Last Documented VS:
Initial Vital Signs
Temp Pulse Resp BP Pulse Ox
97.8 F 98 20 166/91 99
04/30/25 19:54 04/30/25 19:54 04/30/25 19:54 04/30/25 19:54 04/30/25 19:54
Last Documented Vital Signs
Temp Pulse Resp BP Pulse Ox
98 F 68 20 118/76 99
05/01/25 00:54 05/01/25 00:54 05/01/25 00:54 05/01/25 00:54 04/30/25 22:36
MDM/Problems Addressed
Differential Diagnosis Includes:
Dehydration, gastroenteritis, cannabis hyperemesis
MDM/Problems Addressed:
24-year-old female with history of anxiety/depression, PCOS, cholecystectomy 10/26/2024 presents with an acute onset of nausea and vomiting at 330 this afternoon. She denies fever or chills. Denies chest pain or shortness of breath. Denies
abdominal pain. She has had some loose to watery nonbloody stools past 2 days.
Patient did take Zofran at home but threw it up.
Afebrile, NAD
CBC: WBC 14.5 (reactive to vomiting)
CMP unremarkable
hCG negative
Lipase normal
11:20 p.m.
Vomiting, RLQ pain,
05/01/2025 12:45 AM:
Patient radiology CT abdomen pelvis with IV contrast report read: No acute intra-abdominal pathology specifically appendix is normal. Report scanned into chart.
In to reevaluate pt: she is feeling much better and is ready to go home.
Copy of CT report given to her.
She has Zofran at home if needed.
*Pulse Oximetry
SaO2: 99
Oxygen Mode of Delivery: Room air
Patient hypoxic: not evaluated
*Critical Care Note
Total Time (30-74mins, 75-104mins- exclusive of procedures): Not Applicable
ED Attending Note
-
Portions of this chart may have been created with voice recognition software.� Occasional wrong word or��sound alike� substitutions may have occurred due to the inherent limitations of voice recognition software.
Discharge Plan
Departure
Patient Disposition: Home (Routine Discharge)
Date of Disposition: 05/01/25
Time of Disposition: 00:53
Patient with high blood pressure during this ER visit?: No
Condition: Good
Discharge Problem:
Nausea & vomiting
Instructions: Nausea and Vomiting, Adult (DC)
Prescriptions:
No Action
montelukast 10 mg Tablet
10 mg PO DAILY
metformin 500 mg Tablet Extended Release 24 Hr
500 mg PO DAILY
etonogestrel-ethinyl estradiol [NuvaRing] 0.12-0.015 mg/24 hr Ring
1 vag ring VAGINAL Q4W
duloxetine 30 mg Capsule, Delayed Rel Sprinkle
60 mg PO DAILY
acetaminophen 325 mg tablet
650 mg PO Q6HPRN PRN (Reason: mild pain) Qty: 14 0RF
tramadol 50 mg tablet
25 mg PO Q6HPRN PRN (Reason: severe pain/breakthrough pain) Qty: 8 0RF
ibuprofen 600 mg tablet
600 mg PO Q6H PRN (Reason: pain) Qty: 14 0RF
Referrals:
Dolly Nguyen PA [Family Provider, Family Practice] - As needed
Activity Restrictions/Additional Instructions:
As we discussed,, nothing worrisome in your workup here today.
Use your Zofran as needed
See your doctor next week if you are not feeling much better by them.
Interventions
Interventions:
*Risk Screen - Suicide Last Done: 04/30/25 21:45
*General Assessment Last Done: 04/30/25 19:54
*Neglect/Abuse Screening Last Done: 04/30/25 21:46
*ED- Fall Risk Assessment Last Done: 04/30/25 21:45
*ED COVID-19 Vaccine History Last Done: 04/30/25 21:45
*ED Influenza Vaccine History Last Done: 04/30/25 21:45
*Nursing Disposition Last Done: 05/01/25 00:54
AE-Bgfiqs-Yroynbopev Assessment Last Done: 04/30/25 21:39
Discharge Date and Time
Discharge Date/Time: 05/01/25 01:01
Print Language: WOLOF
[2025-04-30] MEDS: BENADRYL 50 MG IM (23:22)
[2025-04-30] MEDS: COMPAZINE 10 MG IV (23:23)
[2025-05-01 00:54] VITALS: BP 118/76
== END 2025-05-01 01:01 | disposition home or self-care (01) ==
LOC: EMR 19:51
PROVIDERS: Student in an Organized Health Care Education/Training Program; EMERGENCY PHYSICIAN Emergency Medicine; FAMILY PHYSICIAN Physician Assistant
DX: R11.2 Nausea with vomiting, unspecified (principal); J45.909 Unspecified asthma, uncomplicated; F41.9 Anxiety disorder, unspecified; F32.A Depression, unspecified; E28.2 Polycystic ovarian syndrome
CPT/HCPCS: 99284; 96374; 96375; 96361; 96372; 74177; 80053; 83690; 84703; 85025; Q9967